=== PATIENT | female | born 1930 | race Caucasian/White ===

== ENCOUNTER 2017-11-14 12:14 | Observation (INO) | payer MEDICARE, BC ==
[2017-11-14] MEDS ORDERED: ACETAMINOPHEN 325 MG PO ONE (13:07)
[2017-11-14 13:13] LABS: BASOPHILS % (AUTO) 1 % (0-3); EOSINOPHILS % (AUTO) 1 % (0-9); HEMATOCRIT 44 % (35-47); HEMOGLOBIN 15.9 gm/dl (12.0-15.5); LYMPHOCYTES % (AUTO) 27.1 % (10-50); MEAN CORPUSCULAR HEMOGLOBIN 32.9 pg (27.0-32.0); MEAN CORPUSCULAR HGB CONC 36.1 gm/dl (32.0-36.0); MEAN CORPUSCULAR VOLUME 91 fL (81-99); MONOCYTES % (AUTO) 6.9 % (0-12); NEUTROPHILS % (AUTO) 64.7 % (37-80)
[2017-11-14] MEDS ORDERED: ACETAMINOPHEN 325 MG ONE (13:19)
[2017-11-14 13:21] LABS: CALCIUM 9.5 mg/dl (8.5-10.1); CARBON DIOXIDE 26.9 mEq/L (21-32); CREATININE 0.72 mg/dl (0.60-1.00); POTASSIUM 3.7 mMol/L (3.5-5.1)
[2017-11-14 13:44] LABS: APPEARANCE,URINE Clear; BILIRUBIN,URINE 2+ (NEGATIVE); COLOR,URINE Yellow; GLUCOSE, URINE (UA) NEGATIVE (NEGATIVE); KETONES,URINE 4+ (NEGATIVE); LEUKOCYTE ESTERASE ,URINE NEGATIVE (NEGATIVE); NITRATE,URINE NEGATIVE (NEGATIVE); OCCULT BLOOD,URINE NEGATIVE (NEG-TRACE); PH,URINE 5.5; UROBILINOGEN,URINE 0.2 (0.2-1.0 EU)
[2017-11-14] MEDS ORDERED: SODIUM CHLORIDE 0.9% 500 ML SOL IV SCH (14:00)
[2017-11-14 14:05] LABS: BACTERIA TRACE (< 1+); CRYSTALS NEGATIVE (0-3 AVE/HPF); EPITHELIAL CELLS 0-1 (SQUAMOUS); ICTOTEST,URINE POSITIVE (NEGATIVE); RBC,URINE NEGATIVE (0-3AV/HPF); WBC,URINE 0-1 (0-5AV/HPF)
[2017-11-14] MEDS: SODIUM CHLORIDE 0.9% FLUSH 10 ML SOL IV PRN ×2 (14:19→15:55)
[2017-11-14] MEDS ORDERED: KETOROLAC TROMETHAMINE 30 MG/ML SOL IV ONE (15:40)
[2017-11-14] MEDS ORDERED: ONDANSETRON HCL 4 MG/2 ML SOL IV ONE (15:40)
[2017-11-14] MEDS ORDERED: KETOROLAC TROMETHAMINE 30 MG/ML SOL ONE (15:44)
[2017-11-14] MEDS ORDERED: ONDANSETRON HCL 4 MG/2 ML SOL ONE (15:44)
[2017-11-14 18:27] VITALS: O2SAT 94
[2017-11-14] MEDS ORDERED: POLYETHYLENE GLYCOL 17 GM/1 TBS PDS PO PRN (19:36)
[2017-11-14] MEDS: ACETAMINOPHEN 325 MG PO SCH (20:55)
[2017-11-14] MEDS: SODIUM CHLORIDE 0.9% FLUSH 10 ML SOL IV SCH (20:55)
[2017-11-15] MEDS ORDERED: NAPROXEN 500 MG TAB PO PRN (02:59)
[2017-11-15] MEDS ORDERED: NAPROXEN 500 MG TAB ONE (03:07)
[2017-11-15] MEDS: SODIUM CHLORIDE 0.9% FLUSH 10 ML SOL IV SCH ×2 (04:30→11:30)
[2017-11-15] MEDS ORDERED: SODIUM CHLORIDE 0.9% 1000 ML SOL IV SCH (07:45)
[2017-11-15] MEDS: SODIUM CHLORIDE 0.9% FLUSH 10 ML SOL IV PRN (08:15)
[2017-11-15] MEDS ORDERED: LOSARTAN POTASSIUM 50 MG TAB PO SCH (09:00)
[2017-11-15] MEDS ORDERED: PROPRANOLOL HYDROCHLORIDE PO SCH (09:00)
[2017-11-15] MEDS ORDERED: IMIPRAMINE HCL 100 MG PO SCH (09:00)
[2017-11-15] MEDS ORDERED: NAPROXEN 500 MG TAB PO SCH (09:00)
[2017-11-15] MEDS ORDERED: OMEPRAZOLE 20 MG CAPSULE PO SCH (09:00)
[2017-11-15 09:55] VITALS: BP 124/80; PULSE 88; RESP 16; TEMP 96.4
[2017-11-15] MEDS: ACETAMINOPHEN 325 MG PO SCH (10:44)
== END 2017-11-15 13:25 | disposition home or self-care (01) | DRG 392 ==
LOC: ED 12:14 → UNDOADMOB 17:56 → ACUTE CARE 17:56
PROVIDERS: ADMIT Family Medicine; ATTEND Family Medicine
PROC: F01L5ZZ Range of Motion and Joint Integrity Assessment of Musculoskeletal System - Lower Back / Lower Extremity (ICD-10-PCS; principal; 2017-11-15)
PROC: F01ZDZZ Gait and/or Balance Assessment (ICD-10-PCS; 2017-11-15)
DX: R11.2 Nausea with vomiting, unspecified (principal); R10.9 Unspecified abdominal pain; M54.5 Low back pain; R63.0 Anorexia
CPT/HCPCS: 74019; 74177; 80048; 81001; 83880; 85025; 96365; 96374; 96375; 99217; 99219; 99285; J1885; J2405; Q9967; A9270-GY

== ENCOUNTER 2018-02-02 09:29 | Emergency (ER) | payer MEDICARE, BC ==
[2018-02-02 09:29] VITALS: O2SAT 94
[2018-02-02 09:35] VITALS: BP 147/77; PULSE 86; RESP 16; TEMP 97.8
== END 2018-02-02 10:04 | DRG 103 ==
LOC: ED 09:29
DX: R51 Headache (principal); W19.XXXA Unspecified fall, initial encounter
CPT/HCPCS: 99282

== ENCOUNTER 2018-06-07 13:05 | Inpatient (IN) | payer MEDICARE, BC ==
[2018-06-07] MEDS ORDERED: SODIUM CHLORIDE 0.9% 500 ML 500 ML IV ONE (13:30)
[2018-06-07] MEDS ORDERED: POTASSIUM CHLORIDE 10 MEQ TER PO ONE ×2 (13:30→17:30)
[2018-06-07] MEDS ORDERED: ACETAMINOPHEN PO PRN (13:48)
[2018-06-07] MEDS ORDERED: HYDROCODONE PO PRN (13:48)
[2018-06-07] MEDS: SODIUM CHLORIDE 0.9% FLUSH 10 ML SOL IV PRN ×2 (14:10→14:11)
[2018-06-07] MEDS: SODIUM CHLORIDE 0.9% 1000ML 1,000 ML IV SCH (15:03)
[2018-06-07] MEDS: APAP/HYDROCODONE 1 EACH TABLET PO PRN ×3 (15:08→22:49)
[2018-06-07] MEDS ORDERED: POLYETHYLENE GLYCOL 17 GM/1 TBS PDS PO PRN (19:47)
[2018-06-07] MEDS: GABAPENTIN 300 MG CAP PO SCH (21:15)
[2018-06-07] MEDS: ACETAMINOPHEN 325 MG PO SCH (21:15)
[2018-06-08] MEDS: SODIUM CHLORIDE 0.9% 1000ML 1,000 ML IV SCH (03:31)
[2018-06-08] MEDS: APAP/HYDROCODONE 1 EACH TABLET PO PRN (04:04)
[2018-06-08 07:39] LABS: CALCIUM 8.8 mg/dl (8.5-10.1); CARBON DIOXIDE 25.8 mEq/L (21-32); CREATININE 0.79 mg/dl (0.60-1.00)
[2018-06-08] MEDS ORDERED: OMEPRAZOLE 20 MG CAPSULE PO SCH (09:00)
[2018-06-08] MEDS ORDERED: IMIPRAMINE HCL 100 MG PO SCH (09:00)
[2018-06-08] MEDS: GABAPENTIN 300 MG CAP PO SCH ×4 (09:08→20:00)
[2018-06-08] MEDS: LOSARTAN POTASSIUM 50 MG TAB PO SCH (09:08)
[2018-06-08] MEDS: PANTOPRAZOLE SODIUM 40 MG ECT PO SCH (09:09)
[2018-06-08] MEDS: ACETAMINOPHEN 325 MG PO SCH ×3 (09:09→20:00)
[2018-06-08] MEDS: PROPRANOLOL HYDROCHLORIDE PO SCH (12:16)
[2018-06-08] MEDS: QUETIAPINE FUMARATE 25 MG TAB PO ONE ×2 (16:50→17:45)
[2018-06-08] MEDS ORDERED: HALOPERIDOL LACTATE 5 MG/ML SOL IV ONE (17:38)
[2018-06-08] MEDS: IMIPRAMINE HCL 100 MG PO SCH (20:00)
[2018-06-09] MEDS ORDERED: HALOPERIDOL LACTATE 5 MG/ML SOL IV ONE (02:15)
[2018-06-09 07:25] LABS: CALCIUM 9.3 mg/dl (8.5-10.1); CARBON DIOXIDE 25.9 mEq/L (21-32); CREATININE 0.56 mg/dl (0.60-1.00); POTASSIUM 3.7 mMol/L (3.5-5.1)
[2018-06-09] MEDS ORDERED: TEMAZEPAM 15MG 15 MG CAP PO PRN (07:44)
[2018-06-09 07:59] LABS: BASOPHILS % (AUTO) 1 % (0-3); EOSINOPHILS % (AUTO) 1 % (0-9); HEMATOCRIT 41 % (35-47); HEMOGLOBIN 13.3 gm/dl (12.0-15.5); LYMPHOCYTES % (AUTO) 16.8 % (10-50); MEAN CORPUSCULAR HEMOGLOBIN 32.4 pg (27.0-32.0); MEAN CORPUSCULAR HGB CONC 32.8 gm/dl (32.0-36.0); MONOCYTES % (AUTO) 7.1 % (0-12); NEUTROPHILS % (AUTO) 74.6 % (37-80)
[2018-06-09 08:03] LABS: MEAN CORPUSCULAR VOLUME 99 fL (81-99)
[2018-06-09] MEDS: ACETAMINOPHEN 325 MG PO SCH ×3 (08:42→20:32)
[2018-06-09] MEDS: GABAPENTIN 300 MG CAP PO SCH ×3 (08:42→20:31)
[2018-06-09] MEDS: LOSARTAN POTASSIUM 50 MG TAB PO SCH (08:43)
[2018-06-09] MEDS: PROPRANOLOL HYDROCHLORIDE PO SCH (08:44)
[2018-06-09] MEDS: PANTOPRAZOLE SODIUM 40 MG ECT PO SCH (08:45)
[2018-06-09] MEDS: QUETIAPINE FUMARATE 25 MG TAB PO SCH ×2 (08:46→20:32)
[2018-06-09] MEDS: IMIPRAMINE HCL 100 MG PO SCH (08:46)
[2018-06-09] MEDS: SODIUM CHLORIDE 0.9% FLUSH 10 ML SOL IV PRN (09:26)
[2018-06-09 11:56] LABS: APPEARANCE,URINE Clear; BILIRUBIN,URINE NEGATIVE (NEGATIVE); COLOR,URINE Yellow; GLUCOSE, URINE (UA) NEGATIVE (NEGATIVE); KETONES,URINE TRACE (NEGATIVE); LEUKOCYTE ESTERASE ,URINE TRACE (NEGATIVE); NITRATE,URINE NEGATIVE (NEGATIVE); OCCULT BLOOD,URINE NEGATIVE (NEG-TRACE)
[2018-06-09 12:02] LABS: RBC,URINE NEG (0-3AV/HPF)
[2018-06-09 12:03] LABS: BACTERIA NEGATIVE (< 1+); CRYSTALS NEGATIVE (0-3 AVE/HPF)
[2018-06-09] MEDS: APAP/HYDROCODONE 1 EACH TABLET PO PRN (13:19)
[2018-06-09] MEDS: DOXYCYCLINE 100 MG TAB PO SCH ×2 (14:03→20:31)
[2018-06-10] MEDS: PROPRANOLOL HYDROCHLORIDE PO SCH (08:32)
[2018-06-10] MEDS: IMIPRAMINE HCL 100 MG PO SCH (08:32)
[2018-06-10] MEDS: GABAPENTIN 300 MG CAP PO SCH (08:32)
[2018-06-10] MEDS: ACETAMINOPHEN 325 MG PO SCH (08:32)
[2018-06-10] MEDS: PANTOPRAZOLE SODIUM 40 MG ECT PO SCH (08:32)
[2018-06-10] MEDS: DOXYCYCLINE 100 MG TAB PO SCH (08:33)
[2018-06-10] MEDS: LOSARTAN POTASSIUM 50 MG TAB PO SCH (08:33)
[2018-06-10 08:41] VITALS: BP 149/73; PULSE 73; RESP 18; TEMP 97.4; O2SAT 95
== END 2018-06-10 11:35 | DRG 641 ==
LOC: ACUTE CARE 13:05
PROVIDERS: ADMIT Family Medicine; ATTEND Family Medicine
PROC: F01ZCZZ Transfer Assessment (ICD-10-PCS; principal; 2018-06-08)
PROC: F01ZDZZ Gait and/or Balance Assessment (ICD-10-PCS; 2018-06-08)
DX: E86.0 Dehydration (principal); S22.31XA Fracture of one rib, right side, initial encounter for closed fracture; E87.6 Hypokalemia; W19.XXXA Unspecified fall, initial encounter; I10 Essential (primary) hypertension; R41.0 Disorientation, unspecified
CPT/HCPCS: 36415; 80048; 81001; 85025; 87088; J1630; A9270-GY

== ENCOUNTER 2018-09-11 15:15 | Emergency (ER) | payer MEDICARE, BC ==
[2018-09-11 15:42] VITALS: RESP 20; TEMP 98.7
[2018-09-11 16:34] LABS: BASOPHILS % (AUTO) 0 % (0-3); EOSINOPHILS % (AUTO) 0 % (0-9); HEMATOCRIT 44 % (35-47); HEMOGLOBIN 14.5 gm/dl (12.0-15.5); LYMPHOCYTES % (AUTO) 9.1 % (10-50); MEAN CORPUSCULAR HEMOGLOBIN 31.9 pg (27.0-32.0); MEAN CORPUSCULAR HGB CONC 32.8 gm/dl (32.0-36.0); MEAN CORPUSCULAR VOLUME 97 fL (81-99); MONOCYTES % (AUTO) 8.4 % (0-12); NEUTROPHILS % (AUTO) 82.1 % (37-80)
[2018-09-11 16:40] LABS: CALCIUM 9.1 mg/dl (8.5-10.1); CARBON DIOXIDE 29.2 mEq/L (21-32); CREATININE 0.98 mg/dl (0.60-1.00); POTASSIUM 3.4 mMol/L (3.5-5.1)
[2018-09-11 16:51] LABS: APPEARANCE,URINE Clear; BILIRUBIN,URINE 1+ (NEGATIVE); COLOR,URINE Yellow; GLUCOSE, URINE (UA) NEGATIVE (NEGATIVE); KETONES,URINE NEGATIVE (NEGATIVE); LEUKOCYTE ESTERASE ,URINE NEGATIVE (NEGATIVE); NITRATE,URINE NEGATIVE (NEGATIVE); OCCULT BLOOD,URINE NEGATIVE (NEG-TRACE); PH,URINE 5.5; UROBILINOGEN,URINE 0.2 (0.2-1.0 EU)
[2018-09-11 17:01] LABS: BACTERIA NEGATIVE (< 1+); CRYSTALS NEGATIVE (0-3 AVE/HPF); EPITHELIAL CELLS 0-3 (SQUAMOUS); ICTOTEST,URINE NEGATIVE (NEGATIVE); RBC,URINE NEG (0-3AV/HPF); WBC,URINE 0-1 (0-5AV/HPF)
[2018-09-11] MEDS: CEPHALEXIN 250 MG/5 ML BOTTLE PO ONE (17:29)
[2018-09-11] MEDS ORDERED: CEPHALEXIN 250 MG/5 ML BOTTLE ONE ×2 (17:37→17:38)
[2018-09-11 17:47] VITALS: BP 110/38; PULSE 70; O2SAT 94
== END 2018-09-11 17:42 | disposition home or self-care (01) | DRG 603 ==
LOC: ED 15:15
DX: L08.9 Local infection of the skin and subcutaneous tissue, unspecified (principal); D72.829 Elevated white blood cell count, unspecified
CPT/HCPCS: 36415; 70150; 80048; 81001; 85025; 99283; A9270-GY